=== PATIENT | female | born 1975 | race Caucasian/White ===

== ENCOUNTER 2019-06-18 22:17 | Emergency (ER) | payer SELFPAY ==
[~2019-06-18] VITALS: Ht 157.5 cm; Wt 59.1 kg
[2019-06-18 23:44] VITALS: BP 144/95
[2019-06-19] MEDS ORDERED: PROPARACAINE HCL 0.5% 15 ML OPHTHALMIC SOLUTION OS ONE (00:30)
[2019-06-19] MEDS ORDERED: FLUORESCEIN SODIUM 1 MG STRIP ONE (01:07)
[2019-06-19] MEDS ORDERED: HYDROCODONE/ACETAMINOPHEN 5-325 MG TABLET PO ONE (01:30)
[2019-06-19] MEDS ORDERED: ERYTHROMYCIN 0.5% 3.5 GM TUBE OPHTHALMIC OINTMENT OS ONE (01:30)
== END 2019-06-19 01:42 | disposition home or self-care (01) ==
LOC: EMS 22:18
DX: S05.02XA Injury of conjunctiva and corneal abrasion without foreign body, left eye, initial encounter (principal); W22.8XXA Striking against or struck by other objects, initial encounter; Y93.89 Activity, other specified; Y92.89 Other specified places as the place of occurrence of the external cause; Y99.8 Other external cause status
CPT/HCPCS: 99173